=== PATIENT | male | born 1950 | race Two or more races ===

== ENCOUNTER 2023-07-30 15:09 | Inpatient (IN) | payer OTHER ==
[~2023-07-30] VITALS: Ht 185.4 cm; Wt 92.1 kg
[2023-07-30 15:57] VITALS: PULSE 69; RESP 20; O2SAT 97
[2023-07-30 15:58] LABS: Basophils # (auto) 0 10 ^3/uL (0-0.2); Basophils % (auto) 0.5 % (0.0-2.0); Eosinophils # (auto) 0.1 10 ^3/uL (0-0.8); Hematocrit 37.2 % (41.0-53.0); Hemoglobin 11.9 g/dL (13.5-17.5); Lymphocytes # (auto) 0.8 10 ^3/uL (0.4-5.4); Lymphocytes % (auto) 13.2 % (10.0-50.0); Mean Corpuscular Hgb Conc. 31.9 g/dL (32.0-36.0); Mean Corpuscular Volume 87.8 fL (80.0-100.0); Monocytes # (auto) 0.5 10 ^3/uL (0-1.3); Monocytes % (auto) 7.5 % (0.0-12.0); Neutrophils # (auto) 4.6 10 ^3/uL (1.6-8.6); Neutrophils % (auto) 76.8 % (37.0-80.0); Nucleated Red Blood Cells % 0.4 %; Red Blood Cells 4.23 10^6/uL (4.5-5.90); Red Cell Distribution Width 18.6 % (11.8-14.3)
[2023-07-30] MEDS: FUROSEMIDE 40 MG/4 ML VIAL IV ONE (16:08)
[2023-07-30 16:16] LABS: Alanine Aminotransferase 15 U/L (7-40); Alkaline Phosphatase 119 U/L (46-116); Anion Gap 7 (5-15); Aspartate Aminotransferase 27 U/L (13-40); BUN/Creatinine Ratio 24.5 (10.0-20.0); Blood Urea Nitrogen 46 mg/dL (9-23); Calcium 8.8 mg/dL (8.7-10.4); Carbon Dioxide 26 mmol/L (20-30); Chloride 106 mmol/L (98-107); Glucose 93 mg/dL (74-106); Potassium 4.7 mmol/L (3.5-5.1); Sodium 139 mmol/L (136-145)
[2023-07-30 16:17] LABS: Bilirubin, Total 1.1 mg/dL (0.2-1.0); Total Protein 7.1 g/dL (5.7-8.2)
[2023-07-30 16:33] LABS: INR 1.36 (0.9-1.15)
[2023-07-30 16:50] LABS: Urine Bacteria NONE SEEN /hpf (None Seen); Urine Blood Negative /uL (Negative); Urine Clarity Clear (Clear); Urine Color Colorless (Yellow); Urine Hyaline Cast MOD /lpf (0 - 2); Urine Mucus FEW (None Seen); Urine Protein, UAD Negative (Negative); Urine Urobilinogen Normal (Negative); Urine WBC 2 /hpf (0 - 3); Urine pH 5.5 (5.0-8.0)
[2023-07-30] MEDS: ASPirin-EC 325mg tab PO ONE (17:14)
[2023-07-30] MEDS ORDERED: NITROGLYCERIN 0.4 MG SL TAB SL PRN (19:00)
[2023-07-30] MEDS ORDERED: MORPHINE SULFATE INJ 2 MG/ml SYRG IV PRN (19:00)
[2023-07-30] MEDS ORDERED: AMIO200T13 PO (19:04)
[2023-07-30] MEDS ORDERED: CARV3.1240 PO (19:04)
[2023-07-30] MEDS ORDERED: ATOR40TA52 PO (19:04)
[2023-07-30] MEDS ORDERED: ENAL1TAB42 PO (19:04)
[2023-07-30] MEDS ORDERED: levoFLOXacin 500MG 100 ML IV SCH (19:15)
[2023-07-30 19:47] VITALS: PULSE 76; RESP 24; O2SAT 97
[2023-07-30] MEDS: ACETAMINOPHEN 325 MG TAB PO PRN (20:02)
[2023-07-30 20:33] VITALS: BP 133/91; PULSE 87; RESP 24; TEMP 97.7; O2SAT 94
[2023-07-30] MEDS: CEFTRIAXONE SODIUM 2 GM in D5W 5% 100 ML IV SCH (20:45)
[2023-07-30] MEDS: cefTRIAXone 1GM/50ML D5W 100 ML IV ONE (21:20)
[2023-07-30] MEDS: MORPHINE SULFATE INJ 2 MG/ml SYRG IV ONE (21:21)
[2023-07-30] MEDS: AMIODARONE HCL 200 MG TAB PO SCH (21:22)
[2023-07-30] MEDS: DOXYCYCLINE 100MG/250ML 250 ML IV SCH (21:28)
[2023-07-30 21:41] VITALS: PULSE 89; RESP 20; O2SAT 98
[2023-07-30] MEDS: BUDESONIDE (INHALATION) 0.5 MG/2 ML NEB NEB SCH (21:41)
[2023-07-30 21:49] VITALS: PULSE 87; RESP 22; O2SAT 98
[2023-07-30] MEDS: ENOXAPARIN SOD 120 MG/0.8 ML SYRINGE SC SCH (22:21)
[2023-07-31] VITALS (10 sets, daily range): BP systolic 109–115; BP diastolic 85–93; PULSE 79–118; RESP 16–24; O2SAT 96–100
[2023-07-31 00:23] LABS: COVID19 ANTIGEN SOFIA FIA NEGATIVE (NEGATIVE)
[2023-07-31] MEDS: FUROSEMIDE 40 MG/4 ML VIAL IV SCH (05:02)
[2023-07-31 06:25] LABS: Basophils # (auto) 0 10 ^3/uL (0-0.2); Basophils % (auto) 0.3 % (0.0-2.0); Eosinophils # (auto) 0 10 ^3/uL (0-0.8); Eosinophils % (auto) 0.4 % (0.0-7.0); Hematocrit 36.3 % (41.0-53.0); Hemoglobin 11.9 g/dL (13.5-17.5); Lymphocytes # (auto) 0.8 10 ^3/uL (0.4-5.4); Lymphocytes % (auto) 11.1 % (10.0-50.0); Mean Corpuscular Hemoglobin 28.7 pg (28.0-32.0); Mean Corpuscular Hgb Conc. 32.7 g/dL (32.0-36.0); Monocytes # (auto) 0.5 10 ^3/uL (0-1.3); Monocytes % (auto) 7.2 % (0.0-12.0); Neutrophils # (auto) 5.7 10 ^3/uL (1.6-8.6); Nucleated Red Blood Cells % 0.3 %; Red Blood Cells 4.13 10^6/uL (4.5-5.90); Red Cell Distribution Width 18.8 % (11.8-14.3)
[2023-07-31 06:36] LABS: Alanine Aminotransferase 14 U/L (7-40); Alkaline Phosphatase 112 U/L (46-116); Anion Gap 8 (5-15); Aspartate Aminotransferase 30 U/L (13-40); BUN/Creatinine Ratio 18.3 (10.0-20.0); Calcium 9.4 mg/dL (8.5-10.1); Carbon Dioxide 24 mmol/L (20-30); Chloride 106 mmol/L (98-107); Glucose 88 mg/dL (74-106); Potassium 4.7 mmol/L (3.5-5.1); Sodium 138 mmol/L (136-145)
[2023-07-31 06:37] LABS: Bilirubin, Total 1.9 mg/dL (0.2-1.0)
[2023-07-31 06:41] LABS: Blood Urea Nitrogen 32 mg/dL (9-23)
[2023-07-31] MEDS ORDERED: ENOXAPARIN SOD 40 MG/0.4 ML SYRINGE SC SCH (10:00)
[2023-07-31] MEDS: ATORVASTATIN 20 MG TAB PO SCH (10:06)
[2023-07-31] MEDS: CARVEDILOL 3.125 MG TAB PO SCH (10:06)
[2023-07-31 12:08] LABS: Base Excess -0.9 mmol/L (-2.0-2.0)
[2023-07-31] MEDS ORDERED: LORazepam 2MG/ML-1ML VIAL IV PRN (14:45)
[2023-07-31] MEDS: FUROSEMIDE 20 MG/2 ML VIAL IV ONE (16:45)
[2023-07-31] MEDS: ALBUTEROL SULF 2.5 MG/0.5ML(0.5%) NEB SOLN ONE (17:05)
[2023-07-31 18:05] LABS: Base Excess -2.7 mmol/L (-2.0-2.0)
[2023-07-31 18:50] LABS: Lactic Acid w/Reflex 2.2 mmol/L (0.4-2.0)
[2023-07-31] MEDS: cefTRIAXone 2GM/50ML D5W 50 ML IV SCH (21:49)
[2023-08-01] VITALS (11 sets, daily range): PULSE 74–107; RESP 20–24; O2SAT 92–100
[2023-08-01 06:26] LABS: Basophils # (auto) 0 10 ^3/uL (0-0.2); Basophils % (auto) 0.4 % (0.0-2.0); Eosinophils # (auto) 0 10 ^3/uL (0-0.8); Eosinophils % (auto) 0.3 % (0.0-7.0); Hematocrit 34.4 % (41.0-53.0); Hemoglobin 11.1 g/dL (13.5-17.5); Lymphocytes # (auto) 1.1 10 ^3/uL (0.4-5.4); Lymphocytes % (auto) 13.8 % (10.0-50.0); Mean Corpuscular Hemoglobin 28.5 pg (28.0-32.0); Mean Corpuscular Hgb Conc. 32.3 g/dL (32.0-36.0); Mean Corpuscular Volume 88.2 fL (80.0-100.0); Monocytes # (auto) 0.6 10 ^3/uL (0-1.3); Monocytes % (auto) 7.4 % (0.0-12.0); Neutrophils # (auto) 6.3 10 ^3/uL (1.6-8.6); Neutrophils % (auto) 78.1 % (37.0-80.0); Nucleated Red Blood Cells % 0.4 %; Red Cell Distribution Width 18.1 % (11.8-14.3)
[2023-08-01 06:41] LABS: Cholesterol 110 mg/dL (< 200); Triglycerides 67 mg/dL (< 150)
[2023-08-01 06:42] LABS: LDL Cholesterol 51 mg/dL (< 100)
[2023-08-01 06:43] LABS: HDL Cholesterol 48 mg/dL (40-59)
[2023-08-01] MEDS: ALBUTEROL SULF 2.5 MG/0.5ML(0.5%) NEB SOLN NEB SCH (13:15)
[2023-08-01] MEDS ORDERED: SPIR25TA8 PO (13:58)
[2023-08-01] MEDS ORDERED: BUMEX2MG PO (13:58)
[2023-08-01] MEDS ORDERED: POTA-211 PO (13:58)
[2023-08-01] MEDS ORDERED: APIX5TAB PO (13:58)
[2023-08-01] MEDS ORDERED: VANCOMYCIN PER PHARMACY 0 MG IV SCH (19:45)
[2023-08-01] MEDS: VANCOMYCIN 1GM/200ML 200 ML IV ONE (20:07)
[2023-08-01] MEDS: ALBUTEROL SULF 2.5 MG/0.5ML(0.5%) NEB SOLN NEB ONE (20:43)
[2023-08-02] VITALS (14 sets, daily range): BP systolic 97–111; BP diastolic 68–87; PULSE 56–115; RESP 16–24; TEMP 98.1; O2SAT 90–100
[2023-08-02] MEDS: VANCOMYCIN 1GM/200ML 200 ML IV SCH (13:11)
[2023-08-02 15:29] LABS: Base Excess 0.2 mmol/L (-2.0-2.0)
[2023-08-03] VITALS (20 sets, daily range): BP systolic 91–118; BP diastolic 54–81; PULSE 55–96; RESP 15–32; TEMP 97.8–98.2; O2SAT 92–100
[2023-08-03 05:59] LABS: Basophils # (auto) 0 10 ^3/uL (0-0.2); Basophils % (auto) 0.1 % (0.0-2.0); Eosinophils # (auto) 0 10 ^3/uL (0-0.8); Eosinophils % (auto) 0.3 % (0.0-7.0); Hematocrit 29.2 % (41.0-53.0); Hemoglobin 9.5 g/dL (13.5-17.5); Lymphocytes # (auto) 0.6 10 ^3/uL (0.4-5.4); Lymphocytes % (auto) 8.7 % (10.0-50.0); Mean Corpuscular Hemoglobin 28.7 pg (28.0-32.0); Mean Corpuscular Hgb Conc. 32.4 g/dL (32.0-36.0); Mean Corpuscular Volume 88.6 fL (80.0-100.0); Monocytes # (auto) 0.6 10 ^3/uL (0-1.3); Monocytes % (auto) 7.9 % (0.0-12.0); Neutrophils # (auto) 5.9 10 ^3/uL (1.6-8.6); Nucleated Red Blood Cells % 1.2 %; Red Cell Distribution Width 18.6 % (11.8-14.3); White Blood Cell 7.1 10^3/uL (4.4-10.8)
[2023-08-03 06:16] LABS: Alanine Aminotransferase 16 U/L (7-40); Alkaline Phosphatase 85 U/L (46-116); Anion Gap 10 (5-15); Aspartate Aminotransferase 32 U/L (13-40); Blood Urea Nitrogen 52 mg/dL (9-23); Calcium 8.7 mg/dL (8.7-10.4); Carbon Dioxide 23 mmol/L (20-30); Chloride 104 mmol/L (98-107); Glucose 105 mg/dL (74-106); Magnesium 2.5 mg/dL (1.6-2.6); Potassium 4.8 mmol/L (3.5-5.1); Sodium 137 mmol/L (136-145)
[2023-08-03 06:17] LABS: Albumin 3.6 g/dL (3.2-4.8); Bilirubin, Total 2.3 mg/dL (0.2-1.0); Total Protein 6.6 g/dL (5.7-8.2)
[2023-08-03 06:36] LABS: Lactic Acid w/Reflex 2.6 mmol/L (0.4-2.0)
[2023-08-03] MEDS: LACTULOSE 20Gm/30ML SOLN PO SCH (08:54)
[2023-08-03] MEDS: FUROSEMIDE 20 MG TAB PO SCH (10:00)
[2023-08-03] MEDS ORDERED: DOXY-286 PO (10:41)
[2023-08-03] MEDS: FUROSEMIDE 40 MG/4 ML VIAL IV ONE (11:00)
[2023-08-03] MEDS: SODIUM CHLORIDE 0.9% 250 ML IV ONE (12:00)
[2023-08-03] MEDS: ALBUTEROL SULF 2.5 MG/0.5ML(0.5%) NEB SOLN NEB SCH (14:00)
[2023-08-03 14:02] LABS: Basophils # (auto) 0 10 ^3/uL (0-0.2); Basophils % (auto) 0.4 % (0.0-2.0); Eosinophils # (auto) 0 10 ^3/uL (0-0.8); Eosinophils % (auto) 0.6 % (0.0-7.0); Hematocrit 28.8 % (41.0-53.0); Hemoglobin 9.1 g/dL (13.5-17.5); Lymphocytes # (auto) 0.9 10 ^3/uL (0.4-5.4); Lymphocytes % (auto) 12.8 % (10.0-50.0); Mean Corpuscular Hemoglobin 28.4 pg (28.0-32.0); Mean Corpuscular Hgb Conc. 31.7 g/dL (32.0-36.0); Mean Corpuscular Volume 89.6 fL (80.0-100.0); Monocytes # (auto) 0.7 10 ^3/uL (0-1.3); Monocytes % (auto) 9.2 % (0.0-12.0); Neutrophils # (auto) 5.5 10 ^3/uL (1.6-8.6); Nucleated Red Blood Cells % 1.5 %; Red Blood Cells 3.21 10^6/uL (4.5-5.90); White Blood Cell 7.2 10^3/uL (4.4-10.8)
[2023-08-03] MEDS: FUROSEMIDE 20 MG/2 ML VIAL IV ONE (15:16)
[2023-08-03 17:14] LABS: Body Fluid Polymorphonuclear 79 % (0-25); Body Fluid White Blood Cells 5750 CUMM (0-200)
[2023-08-03 17:15] LABS: Body Fluid Red Blood Cells 670000 CUMM (0-2000)
[2023-08-03] MEDS: ALPRAZolam 0.25 MG TAB PO ONE (17:42)
[2023-08-03] MEDS: IPRATROPIUM BROM 0.5 MG/2.5ML INH SOL NEB SCH (22:20)
[2023-08-04] VITALS (21 sets, daily range): BP systolic 89–135; BP diastolic 58–105; PULSE 20–95; RESP 16–24; TEMP 96.1–98; O2SAT 91–99
[2023-08-04 06:55] LABS: Basophils # (auto) 0 10 ^3/uL (0-0.2); Basophils % (auto) 0.1 % (0.0-2.0); Eosinophils # (auto) 0.1 10 ^3/uL (0-0.8); Eosinophils % (auto) 1.3 % (0.0-7.0); Hematocrit 28.8 % (41.0-53.0); Hemoglobin 9.2 g/dL (13.5-17.5); Lymphocytes # (auto) 0.6 10 ^3/uL (0.4-5.4); Lymphocytes % (auto) 9.3 % (10.0-50.0); Mean Corpuscular Hemoglobin 27.8 pg (28.0-32.0); Mean Corpuscular Hgb Conc. 31.8 g/dL (32.0-36.0); Mean Corpuscular Volume 87.2 fL (80.0-100.0); Monocytes # (auto) 0.5 10 ^3/uL (0-1.3); Monocytes % (auto) 7.2 % (0.0-12.0); Neutrophils # (auto) 5.4 10 ^3/uL (1.6-8.6); Neutrophils % (auto) 82.1 % (37.0-80.0); Nucleated Red Blood Cells % 2.1 %; Red Cell Distribution Width 18.6 % (11.8-14.3); White Blood Cell 6.6 10^3/uL (4.4-10.8)
[2023-08-04 13:06] LABS: Albumin, Body Fluid 2.2 g/dL (Not Estab.); Protein, Body Fluid 4.1 g/dL (.)
[2023-08-04] MEDS ORDERED: LIDOCAINE 2% JELLY 11ml (GLYDO) ONE (13:31)
[2023-08-04] MEDS ORDERED: LIDOCAINE 2%HCL (LOCAL ANESTH.) INJ 20ML MDV ONE (13:31)
[2023-08-04] MEDS ORDERED: EPINEPHrine HCL 1 MG/1 ML AMP ONE (13:32)
[2023-08-04 16:15] LABS: Basophils # (auto) 0 10 ^3/uL (0-0.2); Basophils % (auto) 0.1 % (0.0-2.0); Eosinophils # (auto) 0.1 10 ^3/uL (0-0.8); Eosinophils % (auto) 1.4 % (0.0-7.0); Hematocrit 28.9 % (41.0-53.0); Hemoglobin 9.3 g/dL (13.5-17.5); Lymphocytes # (auto) 0.6 10 ^3/uL (0.4-5.4); Lymphocytes % (auto) 9.7 % (10.0-50.0); Mean Corpuscular Hemoglobin 28.3 pg (28.0-32.0); Mean Corpuscular Hgb Conc. 32.2 g/dL (32.0-36.0); Mean Corpuscular Volume 87.8 fL (80.0-100.0); Monocytes # (auto) 0.5 10 ^3/uL (0-1.3); Monocytes % (auto) 8.6 % (0.0-12.0); Neutrophils % (auto) 80.2 % (37.0-80.0); Nucleated Red Blood Cells % 2.7 %; Red Blood Cells 3.29 10^6/uL (4.5-5.90); Red Cell Distribution Width 18.7 % (11.8-14.3); White Blood Cell 6.2 10^3/uL (4.4-10.8)
[2023-08-05] VITALS (19 sets, daily range): BP systolic 96–109; BP diastolic 62–75; PULSE 50–110; RESP 15–26; TEMP 97.5–98.3; O2SAT 92–99
[2023-08-05 07:25] LABS: Basophils # (auto) 0 10 ^3/uL (0-0.2); Basophils % (auto) 0.2 % (0.0-2.0); Eosinophils # (auto) 0.1 10 ^3/uL (0-0.8); Eosinophils % (auto) 1.6 % (0.0-7.0); Hemoglobin 9.4 g/dL (13.5-17.5); Lymphocytes # (auto) 0.6 10 ^3/uL (0.4-5.4); Lymphocytes % (auto) 9.7 % (10.0-50.0); Mean Corpuscular Hemoglobin 28.3 pg (28.0-32.0); Mean Corpuscular Hgb Conc. 32.5 g/dL (32.0-36.0); Mean Corpuscular Volume 87.3 fL (80.0-100.0); Monocytes # (auto) 0.6 10 ^3/uL (0-1.3); Monocytes % (auto) 8.6 % (0.0-12.0); Neutrophils # (auto) 5.1 10 ^3/uL (1.6-8.6); Neutrophils % (auto) 79.9 % (37.0-80.0); Red Blood Cells 3.32 10^6/uL (4.5-5.90); Red Cell Distribution Width 18.5 % (11.8-14.3); White Blood Cell 6.4 10^3/uL (4.4-10.8)
[2023-08-05 07:31] LABS: Nucleated Red Blood Cells % 3.4 %
[2023-08-05 08:13] LABS: Chloride 104 mmol/L (98-107); Potassium 4.5 mmol/L (3.5-5.1); Sodium 138 mmol/L (136-145)
[2023-08-05 08:14] LABS: Anion Gap 13 (5-15); Calcium 8.6 mg/dL (8.7-10.4); Carbon Dioxide 21 mmol/L (20-30)
[2023-08-05 08:17] LABS: Basophils # (auto) 0 10 ^3/uL (0-0.2); Basophils % (auto) 0.2 % (0.0-2.0); Eosinophils # (auto) 0.1 10 ^3/uL (0-0.8); Eosinophils % (auto) 1.3 % (0.0-7.0); Hematocrit 28.2 % (41.0-53.0); Lymphocytes # (auto) 0.8 10 ^3/uL (0.4-5.4); Lymphocytes % (auto) 11.1 % (10.0-50.0); Mean Corpuscular Hemoglobin 28.2 pg (28.0-32.0); Mean Corpuscular Hgb Conc. 31.8 g/dL (32.0-36.0); Mean Corpuscular Volume 88.7 fL (80.0-100.0); Monocytes # (auto) 0.7 10 ^3/uL (0-1.3); Monocytes % (auto) 10.4 % (0.0-12.0); Neutrophils # (auto) 5.4 10 ^3/uL (1.6-8.6); Nucleated Red Blood Cells % 2.8 %; Red Blood Cells 3.18 10^6/uL (4.5-5.90); Red Cell Distribution Width 18.6 % (11.8-14.3)
[2023-08-05 08:19] LABS: BUN/Creatinine Ratio 29.3 (10.0-20.0); Glucose 106 mg/dL (74-106)
[2023-08-05 08:20] LABS: Blood Urea Nitrogen 67 mg/dL (9-23)
[2023-08-05 08:45] LABS: Chloride 104 mmol/L (98-107); Potassium 4.2 mmol/L (3.5-5.1); Sodium 138 mmol/L (136-145)
[2023-08-05 08:46] LABS: Anion Gap 10 (5-15); Calcium 8.6 mg/dL (8.7-10.4); Carbon Dioxide 24 mmol/L (20-30)
[2023-08-05 08:51] LABS: BUN/Creatinine Ratio 23.5 (10.0-20.0); Glucose 89 mg/dL (74-106)
[2023-08-05 09:08] LABS: Blood Urea Nitrogen 54 mg/dL (9-23)
[2023-08-05] MEDS ORDERED: LIDOCAINE 2%HCL (LOCAL ANESTH.) INJ 20ML MDV ONE (15:32)
[2023-08-05] MEDS ORDERED: MIDAZOLAM HCL 5 MG/ML-1ML VIAL ONE (15:33)
[2023-08-05] MEDS ORDERED: fentaNYL CITRATE 100 MCG/2 ML VL ONE (15:34)
[2023-08-06] VITALS (21 sets, daily range): BP systolic 98–120; BP diastolic 61–85; PULSE 59–105; RESP 18–24; TEMP 97.7–98.3; O2SAT 93–100
[2023-08-06] MEDS: HYDROcodone-ACET 5/325MG TAB PO PRN (04:39)
[2023-08-06 07:04] LABS: Basophils # (auto) 0 10 ^3/uL (0-0.2); Basophils % (auto) 0.4 % (0.0-2.0); Eosinophils # (auto) 0.1 10 ^3/uL (0-0.8); Eosinophils % (auto) 1.2 % (0.0-7.0); Hematocrit 29.2 % (41.0-53.0); Hemoglobin 9.1 g/dL (13.5-17.5); Lymphocytes # (auto) 0.8 10 ^3/uL (0.4-5.4); Mean Corpuscular Hemoglobin 27.7 pg (28.0-32.0); Mean Corpuscular Hgb Conc. 31.1 g/dL (32.0-36.0); Mean Corpuscular Volume 89.1 fL (80.0-100.0); Monocytes # (auto) 0.5 10 ^3/uL (0-1.3); Monocytes % (auto) 8.5 % (0.0-12.0); Neutrophils # (auto) 5.1 10 ^3/uL (1.6-8.6); Neutrophils % (auto) 77.9 % (37.0-80.0); Nucleated Red Blood Cells % 2.5 %; Red Blood Cells 3.27 10^6/uL (4.5-5.90); Red Cell Distribution Width 18.9 % (11.8-14.3); White Blood Cell 6.5 10^3/uL (4.4-10.8)
[2023-08-06 07:48] LABS: Chloride 106 mmol/L (98-107); Potassium 4.3 mmol/L (3.5-5.1); Sodium 140 mmol/L (136-145)
[2023-08-06 07:49] LABS: Anion Gap 12 (5-15); Carbon Dioxide 22 mmol/L (20-30)
[2023-08-06 07:50] LABS: Calcium 8.8 mg/dL (8.5-10.1)
[2023-08-06 07:54] LABS: Glucose 93 mg/dL (74-106)
[2023-08-06 07:55] LABS: BUN/Creatinine Ratio 23.7 (10.0-20.0); Blood Urea Nitrogen 51 mg/dL (9-23)
[2023-08-06] MEDS: MORPHINE SULFATE INJ 2 MG/ml SYRG IV PRN (23:31)
[2023-08-07] VITALS (22 sets, daily range): BP systolic 83–108; BP diastolic 63–73; PULSE 64–115; RESP 16–26; TEMP 97.2–97.9; O2SAT 93–100
[2023-08-07 09:03] LABS: INR 1.31 (0.9-1.15); Partial Thromboplastin Time 32.6 SEC (24.5-34.5); Prothrombin Time 13.5 sec (9.3-11.8)
[2023-08-07] MEDS ORDERED: SODIUM CHLORIDE 0.9% 250 ML IV ONE (13:00)
[2023-08-07] MEDS: SODIUM CHLORIDE 0.9% 250 ML IV ONE (13:27)
[2023-08-08] VITALS (18 sets, daily range): BP systolic 85–105; BP diastolic 65–67; PULSE 62–100; RESP 16–23; TEMP 97.8–98.4; O2SAT 90–100
[2023-08-08 06:32] LABS: Chloride 105 mmol/L (98-107); Potassium 3.9 mmol/L (3.5-5.1); Sodium 137 mmol/L (136-145)
[2023-08-08 06:33] LABS: Calcium 8.7 mg/dL (8.5-10.1)
[2023-08-08 06:36] LABS: Glucose 96 mg/dL (74-106)
[2023-08-08 06:38] LABS: BUN/Creatinine Ratio 22.8 (10.0-20.0)
[2023-08-08 06:44] LABS: Carbon Dioxide 23 mmol/L (20-30)
[2023-08-08 06:49] LABS: Blood Urea Nitrogen 38 mg/dL (9-23)
[2023-08-08 06:57] LABS: Basophils # (auto) 0 10 ^3/uL (0-0.2); Basophils % (auto) 0.3 % (0.0-2.0); Eosinophils # (auto) 0.1 10 ^3/uL (0-0.8); Eosinophils % (auto) 1.4 % (0.0-7.0); Hemoglobin 9.5 g/dL (13.5-17.5); Lymphocytes # (auto) 0.6 10 ^3/uL (0.4-5.4); Lymphocytes % (auto) 8.1 % (10.0-50.0); Mean Corpuscular Hgb Conc. 31.7 g/dL (32.0-36.0); Mean Corpuscular Volume 88.4 fL (80.0-100.0); Monocytes # (auto) 0.6 10 ^3/uL (0-1.3); Monocytes % (auto) 7.9 % (0.0-12.0); Neutrophils # (auto) 5.8 10 ^3/uL (1.6-8.6); Neutrophils % (auto) 82.3 % (37.0-80.0); Nucleated Red Blood Cells % 1.7 %; Red Blood Cells 3.39 10^6/uL (4.5-5.90); Red Cell Distribution Width 19.1 % (11.8-14.3); White Blood Cell 7.1 10^3/uL (4.4-10.8)
[2023-08-08 07:18] LABS: Anion Gap 9 (5-15)
[2023-08-08] MEDS: SODIUM CHLORIDE 0.9% 250 ML IV ONE (08:14)
[2023-08-08] MEDS ORDERED: NALOXONE HCL 0.4 MG/ML VIAL ONE (08:39)
[2023-08-08] MEDS ORDERED: SODIUM CHLORIDE LOCK 0 ML ONE (08:40)
[2023-08-08] MEDS ORDERED: fentaNYL CITRATE 100 MCG/2 ML VL ONE (08:40)
[2023-08-08] MEDS ORDERED: MIDAZOLAM HCL 5 MG/ML-1ML VIAL ONE (08:40)
[2023-08-08] MEDS ORDERED: LIDOCAINE HCL 2% TOP JELLY 5ML TOP ONE (08:42)
[2023-08-08] MEDS ORDERED: LIDOCAINE 2%HCL (LOCAL ANESTH.) INJ 20ML MDV ONE (08:42)
[2023-08-08] MEDS ORDERED: GLYCOPYRROLATE 0.2 MG/ML 1ML VIAL ONE (08:42)
[2023-08-08] MEDS ORDERED: EPINEPHrine HCL 1 MG/1 ML AMP ONE (08:42)
[2023-08-08] MEDS ORDERED: LIDOCAINE 2% JELLY 11ml (GLYDO) ONE (08:43)
[2023-08-08] MEDS: ONDANSETRON HCL 4 MG/2 ML VIAL IV PRN (10:18)
[2023-08-08] MEDS: GLYCOPYRROLATE 0.2 MG/ML 1ML VIAL ONE (18:10)
[2023-08-08] MEDS: LIDOCAINE 2% JELLY 11ml (GLYDO) ONE (18:10)
[2023-08-09] VITALS (19 sets, daily range): BP systolic 90–111; BP diastolic 48–75; PULSE 68–110; RESP 16–22; TEMP 97.2–98.7; O2SAT 93–100
[2023-08-09 06:37] LABS: Calcium 8.5 mg/dL (8.7-10.4); Chloride 104 mmol/L (98-107); Potassium 4.4 mmol/L (3.5-5.1); Sodium 139 mmol/L (136-145)
[2023-08-09 06:38] LABS: Anion Gap 9 (5-15); Carbon Dioxide 26 mmol/L (20-30)
[2023-08-09 06:43] LABS: BUN/Creatinine Ratio 32.7 (10.0-20.0); Glucose 75 mg/dL (74-106)
[2023-08-09 06:45] LABS: Blood Urea Nitrogen 51 mg/dL (9-23)
[2023-08-09 07:07] LABS: Basophils # (auto) 0 10 ^3/uL (0-0.2); Basophils % (auto) 0.3 % (0.0-2.0); Eosinophils # (auto) 0.1 10 ^3/uL (0-0.8); Eosinophils % (auto) 1.5 % (0.0-7.0); Hematocrit 29.4 % (41.0-53.0); Hemoglobin 9.4 g/dL (13.5-17.5); Lymphocytes # (auto) 0.6 10 ^3/uL (0.4-5.4); Lymphocytes % (auto) 9.5 % (10.0-50.0); Mean Corpuscular Hemoglobin 27.8 pg (28.0-32.0); Mean Corpuscular Hgb Conc. 32.1 g/dL (32.0-36.0); Mean Corpuscular Volume 86.6 fL (80.0-100.0); Monocytes # (auto) 0.7 10 ^3/uL (0-1.3); Monocytes % (auto) 9.8 % (0.0-12.0); Neutrophils # (auto) 5.3 10 ^3/uL (1.6-8.6); Neutrophils % (auto) 78.9 % (37.0-80.0); Nucleated Red Blood Cells % 1.7 %; Red Blood Cells 3.39 10^6/uL (4.5-5.90); Red Cell Distribution Width 18.5 % (11.8-14.3); White Blood Cell 6.8 10^3/uL (4.4-10.8)
[2023-08-09] MEDS ORDERED: LIDOCAINE 2%HCL (LOCAL ANESTH.) INJ 20ML MDV ONE (08:15)
[2023-08-09] MEDS ORDERED: LIDOCAINE 2% JELLY 11ml (GLYDO) ONE (08:15)
[2023-08-09] MEDS ORDERED: SODIUM CHLORIDE LOCK 10 ML ONE (08:15)
[2023-08-09] MEDS ORDERED: FLUMAZENIL 0.1 MG/ML INJ 10ML MDV IV ONE (08:15)
[2023-08-09] MEDS ORDERED: NALOXONE HCL 0.4 MG/ML VIAL ONE (08:16)
[2023-08-09] MEDS ORDERED: GLYCOPYRROLATE 0.2 MG/ML 1ML VIAL ONE (08:16)
[2023-08-09] MEDS ORDERED: EPINEPHrine HCL 1 MG/1 ML AMP ONE (08:51)
[2023-08-09] MEDS: MIDAZOLAM HCL 5 MG/ML-1ML VIAL ONE (09:50)
[2023-08-09] MEDS: fentaNYL CITRATE 100 MCG/2 ML VL ONE (09:50)
[2023-08-09] MEDS: Ensure HIGH Protein Chocolate 8oz Bottle PO SCH (12:00)
[2023-08-10] VITALS (23 sets, daily range): BP systolic 89–98; BP diastolic 56–68; PULSE 69–100; RESP 16–20; TEMP 97.4–98; O2SAT 95–100
[2023-08-10 05:34] LABS: Anion Gap 8 (5-15); Carbon Dioxide 25 mmol/L (20-30); Chloride 106 mmol/L (98-107); Potassium 4.1 mmol/L (3.5-5.1); Sodium 139 mmol/L (136-145)
[2023-08-10 05:35] LABS: Calcium 8.7 mg/dL (8.5-10.1)
[2023-08-10 05:36] LABS: Basophils # (auto) 0 10 ^3/uL (0-0.2); Basophils % (auto) 0.7 % (0.0-2.0); Eosinophils # (auto) 0.1 10 ^3/uL (0-0.8); Eosinophils % (auto) 2.3 % (0.0-7.0); Hematocrit 30.3 % (41.0-53.0); Hemoglobin 9.7 g/dL (13.5-17.5); Lymphocytes # (auto) 0.4 10 ^3/uL (0.4-5.4); Lymphocytes % (auto) 6.7 % (10.0-50.0); Mean Corpuscular Hemoglobin 27.8 pg (28.0-32.0); Mean Corpuscular Volume 86.7 fL (80.0-100.0); Monocytes # (auto) 0.6 10 ^3/uL (0-1.3); Monocytes % (auto) 9.3 % (0.0-12.0); Nucleated Red Blood Cells % 0.6 %; Red Blood Cells 3.49 10^6/uL (4.5-5.90); Red Cell Distribution Width 18.8 % (11.8-14.3); White Blood Cell 6.2 10^3/uL (4.4-10.8)
[2023-08-10 05:39] LABS: Glucose 86 mg/dL (74-106)
[2023-08-10 05:40] LABS: BUN/Creatinine Ratio 27.1 (10.0-20.0)
[2023-08-10 05:44] LABS: Folate (Folic Acid) 17.01 ng/mL (>5.38)
[2023-08-10 06:00] LABS: Blood Urea Nitrogen 39 mg/dL (9-23)
[2023-08-11] VITALS (20 sets, daily range): BP systolic 92–174; BP diastolic 57–99; PULSE 66–102; RESP 16–20; TEMP 97.8–98.1; O2SAT 91–100
[2023-08-11 05:25] LABS: Basophils # (auto) 0 10 ^3/uL (0-0.2); Basophils % (auto) 0.4 % (0.0-2.0); Eosinophils # (auto) 0.2 10 ^3/uL (0-0.8); Eosinophils % (auto) 2.4 % (0.0-7.0); Hematocrit 30.7 % (41.0-53.0); Lymphocytes # (auto) 0.6 10 ^3/uL (0.4-5.4); Mean Corpuscular Hemoglobin 28.2 pg (28.0-32.0); Mean Corpuscular Hgb Conc. 32.5 g/dL (32.0-36.0); Mean Corpuscular Volume 86.8 fL (80.0-100.0); Monocytes # (auto) 0.6 10 ^3/uL (0-1.3); Monocytes % (auto) 9.1 % (0.0-12.0); Neutrophils # (auto) 5.2 10 ^3/uL (1.6-8.6); Neutrophils % (auto) 79.1 % (37.0-80.0); Nucleated Red Blood Cells % 0.5 %; Red Blood Cells 3.53 10^6/uL (4.5-5.90); Red Cell Distribution Width 18.8 % (11.8-14.3); White Blood Cell 6.5 10^3/uL (4.4-10.8)
[2023-08-11 05:36] LABS: Chloride 107 mmol/L (98-107); Sodium 139 mmol/L (136-145)
[2023-08-11 05:37] LABS: Anion Gap 9 (5-15); Carbon Dioxide 23 mmol/L (20-30)
[2023-08-11 05:38] LABS: Calcium 8.3 mg/dL (8.7-10.4)
[2023-08-11 05:42] LABS: Glucose 93 mg/dL (74-106)
[2023-08-11 05:43] LABS: BUN/Creatinine Ratio 23.5 (10.0-20.0); Blood Urea Nitrogen 32 mg/dL (9-23)
[2023-08-11] MEDS ORDERED: FUROSEMIDE 40 MG/4 ML VIAL IV ONE (12:45)
[2023-08-11] MEDS: DOCUSATE SOD 100 MG CAP PO PRN (22:09)
[2023-08-12] VITALS (19 sets, daily range): BP systolic 97–136; BP diastolic 61–75; PULSE 66–103; RESP 16–20; TEMP 97.8–98.3; O2SAT 93–100
[2023-08-12 05:54] LABS: Chloride 107 mmol/L (98-107); Potassium 4.2 mmol/L (3.5-5.1); Sodium 137 mmol/L (136-145)
[2023-08-12 05:55] LABS: Anion Gap 7 (5-15); Calcium 8.4 mg/dL (8.7-10.4); Carbon Dioxide 23 mmol/L (20-30)
[2023-08-12 05:59] LABS: Basophils # (auto) 0 10 ^3/uL (0-0.2); Basophils % (auto) 0.2 % (0.0-2.0); Eosinophils # (auto) 0 10 ^3/uL (0-0.8); Eosinophils % (auto) 0.2 % (0.0-7.0); Hematocrit 30.5 % (41.0-53.0); Hemoglobin 9.7 g/dL (13.5-17.5); Lymphocytes # (auto) 0.6 10 ^3/uL (0.4-5.4); Mean Corpuscular Hemoglobin 27.7 pg (28.0-32.0); Mean Corpuscular Hgb Conc. 31.9 g/dL (32.0-36.0); Mean Corpuscular Volume 86.7 fL (80.0-100.0); Monocytes # (auto) 0.6 10 ^3/uL (0-1.3); Neutrophils % (auto) 85.6 % (37.0-80.0); Nucleated Red Blood Cells % 0.5 %; Red Blood Cells 3.51 10^6/uL (4.5-5.90); Red Cell Distribution Width 18.8 % (11.8-14.3); White Blood Cell 8.1 10^3/uL (4.4-10.8)
[2023-08-12 06:00] LABS: BUN/Creatinine Ratio 24.8 (10.0-20.0); Blood Urea Nitrogen 34 mg/dL (9-23); Glucose 107 mg/dL (74-106)
[2023-08-12] MEDS: FUROSEMIDE 40 MG/4 ML VIAL IV SCH (10:14)
[2023-08-13] VITALS (19 sets, daily range): BP systolic 106–125; BP diastolic 65–85; PULSE 48–116; RESP 16–20; TEMP 97.2–98.2; O2SAT 89–100
[2023-08-13 06:32] LABS: Basophils # (auto) 0 10 ^3/uL (0-0.2); Basophils % (auto) 0.2 % (0.0-2.0); Eosinophils # (auto) 0.2 10 ^3/uL (0-0.8); Eosinophils % (auto) 1.6 % (0.0-7.0); Hematocrit 32.7 % (41.0-53.0); Hemoglobin 10.3 g/dL (13.5-17.5); Lymphocytes # (auto) 0.8 10 ^3/uL (0.4-5.4); Lymphocytes % (auto) 8.9 % (10.0-50.0); Mean Corpuscular Hemoglobin 27.3 pg (28.0-32.0); Mean Corpuscular Hgb Conc. 31.5 g/dL (32.0-36.0); Mean Corpuscular Volume 86.7 fL (80.0-100.0); Monocytes # (auto) 0.6 10 ^3/uL (0-1.3); Monocytes % (auto) 6.8 % (0.0-12.0); Neutrophils # (auto) 7.8 10 ^3/uL (1.6-8.6); Neutrophils % (auto) 82.5 % (37.0-80.0); Nucleated Red Blood Cells % 0.4 %; Red Blood Cells 3.77 10^6/uL (4.5-5.90); Red Cell Distribution Width 19.1 % (11.8-14.3); White Blood Cell 9.5 10^3/uL (4.4-10.8)
[2023-08-13 06:47] LABS: Chloride 105 mmol/L (98-107); Potassium 4.4 mmol/L (3.5-5.1); Sodium 136 mmol/L (136-145)
[2023-08-13 06:48] LABS: Anion Gap 8 (5-15); Carbon Dioxide 23 mmol/L (20-30)
[2023-08-13 06:54] LABS: BUN/Creatinine Ratio 21.8 (10.0-20.0); Blood Urea Nitrogen 31 mg/dL (9-23); Glucose 93 mg/dL (74-106)
[2023-08-13] MEDS: POLYETHYLENE GLYCOL 17 GM PWDR PO ONE (16:42)
[2023-08-13] MEDS: ALPRAZolam 0.25 MG TAB PO ONE (20:00)
[2023-08-13] MEDS: GLYCERIN ADULT RECTAL SUPP PR ONE (20:00)
[2023-08-14] VITALS (18 sets, daily range): BP systolic 105–118; BP diastolic 73–75; PULSE 43–100; RESP 18–21; TEMP 96–97.6; O2SAT 93–100
[2023-08-14 06:02] LABS: Basophils # (auto) 0 10 ^3/uL (0-0.2); Basophils % (auto) 0.2 % (0.0-2.0); Eosinophils # (auto) 0.1 10 ^3/uL (0-0.8); Hematocrit 32.1 % (41.0-53.0); Hemoglobin 10.2 g/dL (13.5-17.5); Lymphocytes # (auto) 0.5 10 ^3/uL (0.4-5.4); Lymphocytes % (auto) 5.8 % (10.0-50.0); Mean Corpuscular Hgb Conc. 31.7 g/dL (32.0-36.0); Mean Corpuscular Volume 88.4 fL (80.0-100.0); Monocytes # (auto) 0.6 10 ^3/uL (0-1.3); Monocytes % (auto) 6.6 % (0.0-12.0); Neutrophils # (auto) 7.4 10 ^3/uL (1.6-8.6); Neutrophils % (auto) 86.4 % (37.0-80.0); Nucleated Red Blood Cells % 0.3 %; Red Blood Cells 3.63 10^6/uL (4.5-5.90); Red Cell Distribution Width 19.1 % (11.8-14.3); White Blood Cell 8.6 10^3/uL (4.4-10.8)
[2023-08-14 06:13] LABS: Chloride 106 mmol/L (98-107); Potassium 4.5 mmol/L (3.5-5.1); Sodium 135 mmol/L (136-145)
[2023-08-14 06:14] LABS: Anion Gap 9 (5-15); Carbon Dioxide 20 mmol/L (20-30)
[2023-08-14 06:15] LABS: Calcium 8.9 mg/dL (8.5-10.1)
[2023-08-14 06:20] LABS: BUN/Creatinine Ratio 16.4 (10.0-20.0); Blood Urea Nitrogen 22 mg/dL (9-23); Glucose 76 mg/dL (74-106)
[2023-08-14 14:52] LABS: Base Excess -0.5 mmol/L (-2.0-2.0)
[2023-08-15] VITALS (12 sets, daily range): BP systolic 99–125; BP diastolic 59–74; PULSE 50–95; RESP 18–22; TEMP 97.6–97.9; O2SAT 95–100
[2023-08-15 06:47] LABS: Basophils # (auto) 0 10 ^3/uL (0-0.2); Basophils % (auto) 0.6 % (0.0-2.0); Eosinophils # (auto) 0.1 10 ^3/uL (0-0.8); Eosinophils % (auto) 0.8 % (0.0-7.0); Hematocrit 31.4 % (41.0-53.0); Lymphocytes # (auto) 0.5 10 ^3/uL (0.4-5.4); Mean Corpuscular Hemoglobin 27.7 pg (28.0-32.0); Mean Corpuscular Hgb Conc. 31.9 g/dL (32.0-36.0); Monocytes # (auto) 0.6 10 ^3/uL (0-1.3); Monocytes % (auto) 8.5 % (0.0-12.0); Neutrophils # (auto) 6.1 10 ^3/uL (1.6-8.6); Neutrophils % (auto) 83.1 % (37.0-80.0); Nucleated Red Blood Cells % 0.1 %; Red Blood Cells 3.61 10^6/uL (4.5-5.90); Red Cell Distribution Width 19.5 % (11.8-14.3); White Blood Cell 7.3 10^3/uL (4.4-10.8)
[2023-08-15 06:53] LABS: Anion Gap 8 (5-15); Carbon Dioxide 24 mmol/L (20-30); Chloride 105 mmol/L (98-107); Potassium 4.6 mmol/L (3.5-5.1); Sodium 137 mmol/L (136-145)
[2023-08-15 06:55] LABS: Calcium 8.9 mg/dL (8.5-10.1)
[2023-08-15 06:59] LABS: BUN/Creatinine Ratio 20.7 (10.0-20.0); Blood Urea Nitrogen 29 mg/dL (9-23); Glucose 79 mg/dL (74-106)
== END 2023-08-15 14:50 | DRG 177 ==
LOC: ER 15:09 → EDBD 15:09 → TELE 19:02 → TELE-CENTR 08-02 17:32 → TELE-EAST 08-07 07:09 → TELE-WESTW 08-10 17:16
PROVIDERS: ADMIT Nurse Practitioner Family; ATTEND Student in an Organized Health Care Education/Training Program
PROC: 5A09357 Assistance with Respiratory Ventilation, Less than 24 Consecutive Hours, Continuous Positive Airway Pressure (ICD-10-PCS; 2023-07-30)
PROC: 5A09357 Assistance with Respiratory Ventilation, Less than 24 Consecutive Hours, Continuous Positive Airway Pressure (ICD-10-PCS; principal; 2023-07-31)
PROC: 0W993ZZ Drainage of Right Pleural Cavity, Percutaneous Approach (ICD-10-PCS; 2023-08-03)
PROC: 0B9K8ZX Drainage of Right Lung, Via Natural or Artificial Opening Endoscopic, Diagnostic (ICD-10-PCS; 2023-08-05)
PROC: 0W9930Z Drainage of Right Pleural Cavity with Drainage Device, Percutaneous Approach (ICD-10-PCS; 2023-08-07)
PROC: 0BJ08ZZ Inspection of Tracheobronchial Tree, Via Natural or Artificial Opening Endoscopic (ICD-10-PCS; 2023-08-09)
DX: J15.69 Pneumonia due to other Gram-negative bacteria (principal); G93.41 Metabolic encephalopathy; I21.A1 Myocardial infarction type 2; J96.21 Acute and chronic respiratory failure with hypoxia; I50.23 Acute on chronic systolic (congestive) heart failure; E85.4 Organ-limited amyloidosis; T79.7XXA Traumatic subcutaneous emphysema, initial encounter; S22.41XA Multiple fractures of ribs, right side, initial encounter for closed fracture; J93.9 Pneumothorax, unspecified; I13.0 Hypertensive heart and chronic kidney disease with heart failure and stage 1 through stage 4 chronic kidney disease, or unspecified chronic kidney disease; N17.9 Acute kidney failure, unspecified; I48.21 Permanent atrial fibrillation; G93.1 Anoxic brain damage, not elsewhere classified; J94.8 Other specified pleural conditions; J91.8 Pleural effusion in other conditions classified elsewhere; J44.0 Chronic obstructive pulmonary disease with (acute) lower respiratory infection; J98.11 Atelectasis; R04.2 Hemoptysis; J98.19 Other pulmonary collapse; D68.59 Other primary thrombophilia; I43 Cardiomyopathy in diseases classified elsewhere; J15.9 Unspecified bacterial pneumonia; Z20.822 Contact with and (suspected) exposure to COVID-19; E78.5 Hyperlipidemia, unspecified; I50.84 End stage heart failure; E66.9 Obesity, unspecified; N18.9 Chronic kidney disease, unspecified; W18.39XA Other fall on same level, initial encounter; I25.10 Atherosclerotic heart disease of native coronary artery without angina pectoris; Z95.810 Presence of automatic (implantable) cardiac defibrillator; Z68.33 Body mass index [BMI] 33.0-33.9, adult; Z86.73 Personal history of transient ischemic attack (TIA), and cerebral infarction without residual deficits; Z87.891 Personal history of nicotine dependence; Z99.81 Dependence on supplemental oxygen; Y93.89 Activity, other specified; Y92.89 Other specified places as the place of occurrence of the external cause; Y99.8 Other external cause status; Z88.8 Allergy status to other drugs, medicaments and biological substances
CPT/HCPCS: 36415; 36600; 70450; 71045; 71250; 74018; 76604; 78582; 80048; 80053; 80061; 80202; 81001; 82140; 82565; 82607; 82746; 82805; 82962; 83036; 83605; 83735; 83880; 84443; 84484; 85025; 85379; 85610; 85730; 86850; 86900; 86901; 87040; 87070; 87077; 87186; 87205; 87426; 89051; 93005; 93306; 93886; 93970; 93971; 94640; 94660; 95819; 97110; 97116; 97163; 97530; 99291; C1724; G0378; J0171; J0696; J2250; J2405; J3490; J7060